=== PATIENT | male | born 1975 | race Caucasian/White ===

== ENCOUNTER 2020-06-19 21:26 | Emergency (ER) | payer OTHER, SELFPAY ==
[2020-06-19 21:35] VITALS: BP 135/98; PULSE 111; RESP 20; TEMP 36.9; O2SAT 97
--- NOTE | 2020-06-19 21:55 | ED.ANIMALBIT ---
HPI - Animal Bite General Chief Complaint: Animal Bite Stated Complaint: cat bite Time Seen by Provider: 06/19/20 21:55 Source: patient and family Mode of arrival: ambulatory Limitations: other (alcohol intoxication) History of Present Illness HPI narrative: Patient comes in complaining of severe pain in his right hand and wrist area where he was scratched and bitten by a cat. Pain he describes as moderate, not improved by any medications. Pain he says is ongoing and increases with movement. complaint: animal bite Onset (ago): day(s) (1) Animal: cat Description of animal: unknown animal and immunizations unknown Mechanism: bite Location: other (right hand and wrist) Pain description: dull and constant Context: unprovoked Associated symptoms: none Related Data Home Medications Medication Instructions Recorded Confirmed buspirone 7.5 mg PO DAILY 06/19/20 06/19/20 Allergies Allergy/AdvReac Type Severity Reaction Status Date / Time No Known Allergies Allergy Verified 06/19/20 21:58 Review of Systems Constitutional: Constitutional: Reports no additional constitutional complaints Eyes: Eyes: Reports no additional eye complaints ENT: Reports system reviewed and no additional complaints, except as documented Cardiovascular: Cardiovascular: Reports no additional cardiovascular complaints Respiratory: Respiratory: Reports no additional respiratory complaints Gastrointestinal: Gastrointestinal: Reports no additional gastrointestinal complaints Genitourinary: Genitourinary: Reports no additional male genitourinary complaints Musculoskeletal: Musculoskeletal: Reports no additional musculoskeletal complaints Integumentary/Breasts: Skin/Breast: Reports system reviewed and no additional complaints, except as docu Neurologic: Reports system reviewed and no additional complaints, except as documented Psychiatric: Psychiatric: Reports no additional psychiatric complaints Endocrine: Endocrine: Reports no additional endocrine complaints Hematologic/Lymphatic: Hematologic/Lymphatic: Reports no additional hematologic/lymphatic complaints Allergic/Immunologic: Allergic/Immunologic: Reports no additional allergic/immunologic complaints FOR[facility]LY [facility] Past Medical History Medical History (Updated 06/20/20 @ 07:56 by Perfecto Ferro MD) No significant medical problems Surgical History Surgical History (Updated 06/20/20 @ 07:52 by Perfecto Ferro MD) No significant past surgical history Family History Family History (Updated 06/20/20 @ 07:52 by Perfecto Ferro MD) Mother No significant family history Social History Social History (Updated 06/20/20 @ 07:53 by Perfecto Ferro MD) Smoking status: Current every day smoker Tobacco type: cigarettes Alcohol intake: current Alcohol use details: greatly excess alcohol intake Substance use: current Living arrangements: with family Gender identity (if verbalized by the patient): Male Exam Const: General: healthy appearing and no acute distress Orientation/consciousness: patient oriented x3 HENMT: Head: normal to inspection General nose exam: Normal external nose present Face and sinus: normal facial exam Mouth: Yes moist mucous membranes Throat: posterior oropharynx normal Eyes: Pupils: Equal, round and reactive pupils present Neck: Neck: normal visual inspection Chest: Chest palpation & inspection: normal inspection of the chest Resp: Effort & Inspection: normal respiratory effort Auscultation: clear to auscultation bilaterally Cardio: Rate: regular rate Rhythm: regular rhythm GI: GI Palp: Yes Soft to palpation (nontender) Skin: General skin exam: normal color Neuro: General: patient oriented x3 and moves all extremities Other: impaired, appears intoxicated Extrem: General: normal to inspection Psych: Appearance: grossly normal Other: intoxicated Course Course Emergency Course: He was given augmentin 875mg, and ketorolac 60mg I
[2020-06-19] MEDS: KETOROLAC (*BKC) 60 MG/2 ML VIAL IM (22:00)
[2020-06-19] MEDS: AMOXICILLIN/CLAVULANATE K 875-125 MG TAB 1 TABLET PO (22:00)
--- NOTE | 2020-06-19 22:40 | PC.NURSE ---
[facility] [place] animal bite report faxed to animal control. form attached to chart.
== END 2020-06-19 22:30 | disposition home or self-care (01) ==
PROVIDERS: Emergency Provider Emergency Medicine
DX: S61.451A Open bite of right hand, initial encounter (principal); W55.01XA Bitten by cat, initial encounter; F17.200 Nicotine dependence, unspecified, uncomplicated
CPT/HCPCS: 96372; 99283; A9270; J1885